=== PATIENT | male | born 1995 | race Caucasian/White ===

== ENCOUNTER 2018-08-16 15:23 | Emergency (ER) | payer BC ==
[2018-08-16 15:34] VITALS: BP 119/82; PULSE 77; TEMP 98; BMI 19.8
--- NOTE | 2018-08-16 15:36 | PDOC ---
Rapid Medical Evaluation Time Seen by Provider: 08/16/18 15:30 Medical Evaluation: 08/16/18 15:30 Pt with PMH of HIV presents to the ED for vomiting and diarrhea. Pt states he was seen by his PCP today and was treated for a (+) gonorrhea test. He states he received azithromycin, ceftriaxone, a flu shot and a pneumonia shot all at once. After receiving the medication, he went home and felt ill. He began vomiting and was unable to keep food down. Denies fevers Exam: appears well, NAD Orders: Labs, IV, Fluids Pt to proceed to ED for further evaluation Discharge Disposition - Diagnosis Vomiting Qualifiers: Vomiting type: unspecified Vomiting Intractability: unspecified Nausea presence : with nausea Qualified Code(s): R11.2 - Nausea with vomiting, unspecified - Referrals - Patient Instructions - Post Discharge Activity
[2018-08-16] MEDS ORDERED: SODIUM CHLORIDE 1,000 ML IV STA (15:37)
[2018-08-16] MEDS ORDERED: ONDANSETRON 4 MG/2 ML VIAL IM ONE (17:10)
[2018-08-16] MEDS ORDERED: ONDANSETRON *ODT* 4 MG TABLET ONE (17:15)
--- NOTE | 2018-08-16 17:24 | PDOC ---
History of Present Illness - General Chief Complaint: Nausea/Vomiting Stated Complaint: VOMITING Time Seen by Provider: 08/16/18 15:30 History Source: Patient Exam Limitations: Clinical Condition - History of Present Illness Initial Comments: 08/16/18 17:20 Patient with history of HIV positive presenting to [facility] today with positive chlamydia test and was treated with ceftriaxone, azithromycin and was also given a flu vaccine and pneumococcal vaccine and patient reported he has not been able to keep any food down since the treatment 4 hours ago. Patient reported he vomit everytime he eats or drink anything since the injections. Denies any other symptoms Timing/Duration: 4-6 hours Past History - Past Medical History Allergies/Adverse Reactions: Allergies Allergy/AdvReac Type Severity Reaction Status Date / Time No Known Allergies Allergy Verified 08/16/18 15:34 Home Medications: Ambulatory Orders Ondansetron [Zofran Odt -] 4 mg SL TID PRN #21 od.tablet 08/16/18 COPD: No - Immunization History Immunization Up to Date: Yes - Suicide/Smoking/Psychosocial Hx Smoking History: Never smoked Information on smoking cessation initiated: No Hx Alcohol Use: No Drug/Substance Use Hx: No Review of Systems - Review of Systems Able to Perform ROS?: Yes Is the patient limited Romansh proficient: No Constitutional: No: Chills, Fever, Malaise Respiratory: No: Symptoms reported Cardiac (ROS): No: See HPI, Chest Pain, Edema, Irregular Heart Rate, Lightheadedness, Palpitations, Syncope, Chest Tightness, Other ABD/GI: Yes: See HPI, Nausea, Poor Fluid Intake, Vomiting. No: Constipated, Diarrhea, Difficulty Swallowing Neurological: No: Headache, Dizziness All Other Systems: Reviewed and Negative *Physical Exam - Vital Signs Last Vital Signs Temp Pulse Resp BP Pulse Ox 98.0 F 77 18 119/82 100 08/16/18 15:31 08/16/18 15:31 08/16/18 15:31 08/16/18 15:31 08/16/18 15:31 - Physical Exam Comments: 08/16/18 17:25 GENERAL: Well developed, well nourished. Awake and alert. No acute distress. HEENT: Normocephalic, atraumatic. PERRLA, EOMI. No conjunctival pallor. Sclera are non- icteric. Moist mucous membranes. Oropharynx is clear. NECK: Supple. Full ROM. No JVD. Carotid pulses 2+ and symmetric, without bruits. No thyromegaly. No lymphadenopathy. CARDIOVASCULAR: Regular rate and rhythm. No murmurs, rubs, or gallops. Distal pulses are 2+ and symmetric. PULMONARY: No evidence of respiratory distress. Lungs clear to auscultation bilaterally. No wheezing, rales or rhonchi. ABDOMINAL: Soft. Non-tender. Non-distended. No rebound or guarding. No organomegaly. Normoactive bowel sounds. MUSCULOSKELETAL Normal range of motion at all joints. SKIN: Warm and dry. Normal capillary refill. No rashes. No jaundice. NEUROLOGICAL: Alert, awake, appropriate. Gait is normal without ataxia. PSYCHIATRIC: Cooperative. Good eye contact. Appropriate mood and affect. General Appearance: Yes: Nourished, Appropriately Dressed. No: Apparent Distress ED Treatment Course - Medications Given in the ED: ED Medications Discontinued Medications Generic Name Dose Route Start Last Admin Trade Name Freq PRN Reason Stop Dose Admin Ondansetron HCl 4 mg 08/16/18 17:10 08/16/18 17:17 Zofran Injection IM 08/16/18 17:11 4 mg ONCE ONE Administration Medical Decision Making - Medical Decision Making 08/16/18 17:26 Patient with history of HIV positive presenting with complain of nausea vomiting after receiving STD treatment and vaccinations at the same time hours ago. Clinical exam unremarkable. Zofran 4 mg IM given for nausea vomiting. Observe for 20 minutes and give by mouth challenge. dispo based on by mouth challenge 08/16/18 17:59 patient able to tolerate PO after zofran and feeling better. Patient stable for home discharge *DC/Admit/Observation/Transfer Diagnosis at time of Disposition: Vomiting Qualifiers: Vomiting type: unspecified Vomiting Intractability: unspecified Nausea presence : with nausea Qualified Code(s): R11.2 - Nausea with vomiting, unspecified - Discharge Dispostion Disposition: HOME Condition at time of disposition: Stable Decision to Admit order: No - Prescriptions Prescriptions: Ondansetron [Zofran Odt -] 4 mg SL TID PRN #21 od.tablet PRN Reason: vomiting - Referrals - Patient Instructions Printed Discharge Instructions: DI for Vomiting -- Adult - Post Discharge Activity
== END 2018-08-16 18:04 | disposition home or self-care (01) ==
LOC: JERFT 15:23
PROC: 3E023GC Introduction of Other Therapeutic Substance into Muscle, Percutaneous Approach (ICD-10-PCS; principal; 2018-08-16)
DX: R11.2 Nausea with vomiting, unspecified (principal); Z21 Asymptomatic human immunodeficiency virus [HIV] infection status; A74.89 Other chlamydial diseases
CPT/HCPCS: 99281-25

== ENCOUNTER 2018-10-24 17:11 | Emergency (ER) | payer BC ==
[2018-10-24 17:26] VITALS: BMI 20.5
--- NOTE | 2018-10-24 18:05 | PDOC ---
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 He was seen in the Er there and ct showed collections of stones in the right kidney and ureter, the largest of which was 0.5x0.4x0.4cm as well as moderate right sided hydronephrosis secondary to obstuction. He then left AMA and treated with Rx of aleve migraine and flomax which did not relieve the pain. Came back today to [facility] for intractable pain and was admitted to the floors. From there he eloped and came straight to our ER as he was waiting too long in the ED there. He also had some testicular pain radiation, torsion was then ruled out by ultrasound. Spoke to [facility] ED attending to confirm and clarify story. 10/24/18 19:53 Past History - Past Medical History Allergies/Adverse Reactions: Allergies Allergy/AdvReac Type Severity Reaction Status Date / Time No Known Allergies Allergy Verified 08/16/18 15:34 Home Medications: Ambulatory Orders Ondansetron [Zofran Odt -] 4 mg SL TID PRN #21 od.tablet 08/16/18 COPD: No - Immunization History Immunization Up to Date: Yes - Suicide/Smoking/Psychosocial Hx Smoking History: Current some day smoker Number of Cigarettes Smoked Daily: 1 Information on smoking cessation initiated: Yes Hx Alcohol Use: No Drug/Substance Use Hx: No Review of Systems - Review of Systems Able to Perform ROS?: Yes Is the patient limited Slovenian proficient: No Constitutional: No: Symptoms Reported HEENTM: No: Symptoms Reported Respiratory: No: Symptoms reported Cardiac (ROS): No: Symptoms Reported ABD/GI: Yes: See HPI. No: Symptoms Reported : Yes: See HPI. No: Burning, Dysuria Musculoskeletal: No: Symptoms Reported Integumentary: No: Symptoms Reported Neurological: No: Symptoms reported *Physical Exam - Vital Signs Last Vital Signs Temp Pulse Resp BP Pulse Ox 97.8 F 57 L 2 L 150/85 100 10/24/18 17:17 10/24/18 17:17 10/24/18 17:17 10/24/18 17:17 10/24/18 17:17 - Physical Exam General Appearance: Yes: Nourished, Appropriately Dressed. No: Apparent Distress HEENT: positive: EOMI, MELI, Normal ENT Inspection Respiratory/Chest: positive: Lungs Clear, Normal Breath Sounds. negative: Chest Tender, Respiratory Distress Cardiovascular: positive: Regular Rhythm, Regular Rate, S1, S2 Gastrointestinal/Abdominal: positive: Normal Bowel Sounds, Flat, Soft. negative : Tender Musculoskeletal: positive: CVA Tenderness (R) Extremity: positive: Normal Capillary Refill, Normal Inspection, Normal Range of Motion Integumentary: positive: Normal Color, Warm Neurologic: positive: Fully Oriented, Alert, Normal Mood/Affect, Normal Response , Motor Strength 5/5 Moderate Sedation - Procedure Monitoring Vital Signs: Procedure Monitoring Vital Signs Temperature 97.8 F 10/24/18 17:17 Pulse Rate 57 L 10/24/18 17:17 Respiratory Rate 2 L 10/24/18 17:17 Blood Pressure 150/85 10/24/18 17:17 O2 Sat by Pulse Oximetry (%) 100 10/24/18 17:17 ED Treatment Course - LABORATORY CBC & Chemistry Diagram: 10/24/18 19:46 10/24/18 19:46 Medical Decision Making - Medical Decision Making 10/24/18 19:54 23m with pmh of hiv and myocarditis presenting with renal colic. will r/o signs of infection, renal function and attempt pain control. Will give urology referral. 10/24/18 20:42 Pain controled with Toradol IV. Will dc with urology referral . *DC/Admit/Observation/Transfer Diagnosis at time of Disposition: Nephrolithiasis - Discharge Dispostion Disposition: HOME Condition at time of disposition: Guarded Decision to Admit order: No - Referrals Referrals: Galindo Alvarez MD [Primary Care Provider] - Bennett Garduno MD., MD [Staff Physician] - - Patient Instructions Printed Discharge Instructions: Kidney Stones -- Adult Additional Instructions: Follow up with urologist Dr. Garduno upon discharge. Come back to the ER for any new, worsening or concerning symptoms. Use Motrin for pain. - Post Discharge Activity
--- NOTE | 2018-10-24 19:15 | PDOC ---
Attending Attestation - HPI HPI: 10/24/18 19:22 The patient is a 23 year old male with a significant past medical history of HIV and myocarditis who presents to the emergency department with right flank pain for several days. The patient reports that he was seen in [facility] 2 days ago for similar complaint by which he was found to have a kidney stone. The patient states that he was at [facility] again earlier this evening but decided to come to the ED for evaluation. The patient denies any other symptoms he denies any fever, chills, nausea, vomiting, diarrhea, constipation, or urinary symptoms. He denies any chest pain, shortness of breath, headache or dizziness. The patient denies any other complaints. Documentation prepared by Venita Aldrich, acting as medical office secretary for Gabino Villareal MD. <Venita Aldrich - Last Filed: 10/24/18 19:22> - Resident Resident Name: Ata Natarajan - ED Attending Attestation I have performed the following: I have examined & evaluated the patient, The case was reviewed & discussed with the resident, I agree w/resident's findings & plan, Exceptions are as noted - Physicial Exam PE: 10/24/18 21:04 Agree with exam as documented by resident +R sided CVAT - Medical Decision Making 10/24/18 21:04 Patient with several R sided kidney stones diagnosed at [facility], report confirmed by resident over the phone. Plan there was admission 2/2 intractable pain but patient left AMA b/c he states he was unsatisfied by the care. Here complaining of pain. F/u UA, toradol for pain Pt states px controlled with single dose of toradol, Pt has flomax and naproxen Rx from [facility] that he was notified is ready for order picker. He will follow up with urology <Gabino Villareal - Last Filed: 10/24/18 21:06>
[2018-10-24 19:18] LABS: URINE APPEARANCE CLEAR; URINE BILIRUBIN NEGATIVE (<2.0 mg/dL); URINE COLOR LTYELLOW; URINE GLUCOSE (UA) NEGATIVE (NEGATIVE); URINE KETONE TRACE (NEGATIVE); URINE LEUK ESTERASE NEGATIVE (NEGATIVE); URINE NITRITE NEGATIVE (NEGATIVE); URINE PROTEIN NEGATIVE (NEGATIVE); URINE UROBILINOGEN NEGATIVE mg/dL (0.2-1.0)
[2018-10-24 19:21] LABS: EPI CELLS RARE /HPF (FEW); URINE MUCUS RARE
[2018-10-24] MEDS ORDERED: SODIUM CHLORIDE 1,000 ML IV STA (19:33)
[2018-10-24] MEDS ORDERED: KETOROLAC TROMETHAMINE 15 MG/ML VIAL IVPUSH ONE (19:33)
[2018-10-24] MEDS ORDERED: KETOROLAC TROMETHAMINE 15 MG/ML VIAL ONE (19:53)
[2018-10-24 20:07] LABS: BASO % 0.3 % (0-2.0); HEMATOCRIT 41.8 % (35.4-49); HEMOGLOBIN 14.6 GM/dL (11.7-16.9); LYMPH % 22.9 % (8-40); MCH 31.9 pg (25.7-33.7); MEAN CELL VOLUME 91.1 fl (80-96); MEAN PLT VOLUME 9.2 fl (7.5-11.1); MONO % 7.4 % (3.8-10.2); NEUT % 68.4 % (42.8-82.8); PLATELET COUNT 243 K/MM3 (134-434); RBC 4.59 M/mm3 (4.00-5.60); RDW 12.9 % (11.9-15.9)
[2018-10-24 20:29] LABS: ALBUMIN 4.8 g/dl (3.4-5.0); CALCIUM 9.3 mg/dL (8.5-10.1); CREATININE 1.3 mg/dL (0.55-1.3); SGPT/ALT 39 U/L (13-61)
[2018-10-24 20:30] LABS: ALK PHOS 75 U/L (45-117); ANION GAP 6 MMOL/L (8-16); BLOOD UREA NITROGEN 14 mg/dL (7-18); CHLORIDE 104 mmol/L (98-107); CO2 27 mmol/L (21-32); GLUCOSE,RANDOM 106 mg/dL (74-106); POTASSIUM 4.1 mmol/L (3.5-5.1); SGOT/AST 34 U/L (15-37); SODIUM 137 mmol/L (136-145); TOT PROT 8.4 g/dl (6.4-8.2)
[2018-10-24 21:08] VITALS: BP 110/78; PULSE 88; TEMP 98.5
== END 2018-10-24 21:09 | disposition home or self-care (01) ==
LOC: JER 17:11
PROC: 3E0233Z Introduction of Anti-inflammatory into Muscle, Percutaneous Approach (ICD-10-PCS; principal; 2018-10-24)
DX: N13.2 Hydronephrosis with renal and ureteral calculous obstruction (principal); Z21 Asymptomatic human immunodeficiency virus [HIV] infection status; I51.4 Myocarditis, unspecified
CPT/HCPCS: 36415; 80053; 81003; 81015; 85025; 87086; 99282-25; J7030